=== PATIENT | male | born 1980 | race Asian ===

== ENCOUNTER 2016-09-22 07:39 | Inpatient (IN) | payer MEDICAID, OTHER ==
[~2016-09-22] VITALS: Ht 162.6 cm; Wt 99.8 kg
[~2016-09-22 07:39] MED LIST: CARV12.52 PO; CLON0.1T42 PO; FURO-570 PO; HYDR-3229 PO; ISOS60TE PO; POTA20TA16 PO; SIMV20TA6 PO; SPIR25TA PO
--- NOTE | 2016-09-22 07:48 | NUR ---
Patient taken to bed 04 via wheelchair per RN.
--- NOTE | 2016-09-22 07:49 | NUR ---
Dr. Carbajal evaluating patient at bedside.
--- NOTE | 2016-09-22 07:50 | NUR ---
PATIENT PRESENTS TO ED WITH C/O SOB X 2 WKS WORSE LAST NIGHT---COUGH, WHEEZING HX---CAD, HTN RX---CARDILOL, LASIX, SPAROLACTONE; DENIES N/V/D; SKIN IS PINK/WARM/DRY; AAOX4 WITH EVEN AND STEADY GAIT; LUNGS EXP WHZ BL; HR EVEN AND REGULAR; PT DENIES ANY FEVER, CP,OR COUGH AT THIS TIME; PATIENT STATES PAIN OF 0/10 AT THIS TIME; VSS; PATIENT POSITIONED FOR COMFORT; HOB ELEVATED; BEDRAILS UP X2; BED DOWN. ER MD MADE AWARE OF PT STATUS.
[2016-09-22] MEDS ORDERED: IPRATROPIUM 0.02% 0.5 MG/2.5 ML NEBU INH ONE (07:55)
[2016-09-22] MEDS ORDERED: ALBUTEROL 0.083% 2.5 MG/3 ML NEBU INH ONE (07:55)
[2016-09-22] MEDS ORDERED: MAG SULF 2000 MG/WATER PREMIX 50 ML IV ONE (07:55)
[2016-09-22] MEDS ORDERED: FUROSEMIDE 40 MG/4 ML VIAL IVP ONE (07:55)
--- NOTE | 2016-09-22 07:55 | NUR ---
RT at bedside to give patient breathing treatment.
--- NOTE | 2016-09-22 08:03 | NUR ---
XRAY at bedside.
[2016-09-22 08:09] LABS: BASOPHILS # (AUTO) 0.3 K/uL (0.00-0.22); BASOPHILS % (AUTO) 1.9 % (0.0-2.0); EOSINOPHILS % (AUTO) 6.8 % (0.0-4.0); HEMATOCRIT 41.4 % (36-52); HEMOGLOBIN 13.2 g/dL (12.0-18.0); LYMPHOCYTES # (AUTO) 2.3 K/uL (2.0-11.5); LYMPHOCYTES % (AUTO) 15.9 % (20.5-51.1); MEAN CORPUSCULAR HEMOGLOBIN 28 pg (27-31); MEAN CORPUSCULAR HGB CONC 32 g/dL (33-37); MEAN CORPUSCULAR VOLUME 87 fL (80-94); MONOCYTES # (AUTO) 0.8 K/uL (0.8-1.0); MONOCYTES % (AUTO) 5.6 % (1.7-9.3); NEUTROPHILS % (AUTO) 69.8 % (42.2-75.2); PLATELET COUNT (AUTO) 180 K/uL (140-450); RED BLOOD CELL COUNT(AUTO) 4.78 MIL/uL (4.20-6.10); RED CELL DISTRIBUTION WIDTH 14.3 % (11.6-13.7); WHITE BLOOD COUNT (AUTO) 14.4 K/uL (4.8-10.8)
[2016-09-22 08:13] LABS: BLOOD GAS BASE EXCESS -3.2 mmol/L (-2.0-2.0); BLOOD GAS HCO3 21.7 mmol/L; BLOOD GAS PCO2 38.3 mmHg (20-50); BLOOD GAS PH 7.371 (7.35-7.45); BLOOD GAS PO2 144.9 mmHg
[2016-09-22] MEDS ORDERED: NITROGLYCERIN 2% 1 GM PKT TP ONE ×2 (08:13→08:15)
[2016-09-22 08:14] LABS: BLOOD GAS O2 SAT% 98.5 % (92.0-98.5)
[2016-09-22 08:42] LABS: PARTIAL THROMBOPLASTIN TIME 28.9 secs (22-35.6); PROTHROMBIN TIME 9.7 secs (10.8-13.4)
[2016-09-22 08:47] LABS: ANION GAP 15.8 (8-16); CALCIUM 9.4 mg/dL (8.5-10.1); CARBON DIOXIDE 25.5 mmol/L (21-32); POTASSIUM 3.3 mmol/L (3.5-5.1)
[2016-09-22 08:48] LABS: CREATININE 4.8 mg/dL (0.6-1.3)
[2016-09-22 08:54] LABS: TOTAL BILIRUBIN 0.6 mg/dL (0.0-1.0)
[2016-09-22 08:55] LABS: ALBUMIN 3.1 g/dL (3.4-5.0); TOTAL PROTEIN, SERUM 8.2 g/dL (6.4-8.2)
[2016-09-22 08:56] LABS: AMYLASE 100 U/L (25-115); LIPASE 223 U/L (73-393)
[2016-09-22] MEDS ORDERED: HYDROcodone/APAP 5/325 MG 1 TAB TAB PO PRN (09:00)
[2016-09-22] MEDS ORDERED: ACETAMINOPHEN 325 MG TAB PO PRN (09:00)
[2016-09-22] MEDS ORDERED: LORazepam 2 MG/ML VIAL IVP PRN (09:00)
[2016-09-22] MEDS ORDERED: MORPHINE SULFATE 2 MG/ML SYR IVP PRN (09:00)
[2016-09-22] MEDS ORDERED: ONDANSETRON 4 MG/2 ML VIAL IVP PRN (09:00)
[2016-09-22] MEDS ORDERED: AZITHROMYCIN 500 MG in DEXTROSE 5% 250 ML IV SCH (09:00)
--- NOTE | 2016-09-22 09:15 | NUR ---
Dr. Martinez at bedside
--- NOTE | 2016-09-22 09:47 | NUR ---
Patient will be admitted to care of DR SANTOS. Admited to TELE. Will go to room 119A. Belongings list completed. Report to KENYON BRYANT.
[2016-09-22 09:58] LABS: BILIRUBIN,URINE NEGATIVE (NEGATIVE); BLOOD, URINE 1+ (NEGATIVE); COLOR,URINE YELLOW (YELLOW); LEUKOCYTE ESTERASE ,URINE NEGATIVE (NEGATIVE); NITRITE, URINE NEGATIVE (NEGATIVE); PROTEIN,URINE 3+ (NEGATIVE); UGLUCOSE TRACE (NEGATIVE); UROBILINOGEN,URINE 0.2 EU/dL (0.2 - 1)
[2016-09-22] MEDS ORDERED: POTASSIUM CHLORIDE 10 MEQ TABER PO SCH (10:00)
--- NOTE | 2016-09-22 10:04 | NUR ---
Admitted from ER , with chief complaint of sob , 36 y/o ,Male, Cooperative, oriented to call light, bed, phone,television, bathroom, smoking policy, visiting hours, procedures, ID bracelet on. Belongings list checked. A/OX4, NO S/S OF ACUTE DISTRESS, IV SITE PATENT AND INTACT, PT DENIES PAIN, ON O2 2L NC, CALL LIGHT WITHIN REACH, SAFETY MEASURE ENSURED, WILL CONTINUE TO MONITOR
[2016-09-22 10:06] LABS: RBC,URINE 0-5 (RARE) /HPF (0-5); WBC,URINE 0-5 (RARE) /HPF (0-5)
[2016-09-22 10:07] LABS: BACTERIA,URINE None Seen /HPF (None Seen); MUCUS,URINE None Seen /LPF (None Seen); SQUAMOUS EPITHELIAL CELL,UR 0-3 (FEW) /LPF (0-3 (FEW))
[2016-09-22] MEDS ORDERED: hydrALAZINE 20 MG/ML VIAL IVP PRN (10:15)
[2016-09-22 10:30] LABS: APPEARANCE,URINE SLIGHTLY HAZY (CLEAR)
--- NOTE | 2016-09-22 12:34 | NUR ---
PT RESTING IN BED. NO S/S OF ACUTE DISTRESS NOTED, ON O2 2L NC, DENIES PAIN AT THIS TIME, CALL LIGHT WITHIN REACH, SAFETY MEASURE ENSURED, WILL CONTINUE TO MONITOR.
[2016-09-22] MEDS: hydrALAZINE 25 MG TAB PO SCH ×2 (12:38→21:26)
[2016-09-22] MEDS: ISOSORBIDE DINITRATE 20 MG TAB PO SCH ×2 (12:38→16:57)
[2016-09-22] MEDS: CARVEDILOL 12.5 MG TAB PO SCH ×2 (12:39→21:25)
[2016-09-22] MEDS: ALBUTEROL 0.083% 2.5 MG/3 ML NEBU INH SCH ×2 (12:56→19:35)
[2016-09-22 13:07] VITALS: BP 168/121
--- NOTE | 2016-09-22 15:32 | NUR ---
PT SLEEPING IN BED, NO S/S OF ACUTE DISTRESS NOTED, ON O2 2L NC , CALL LIGHT WITHIN REACH, SAFETY MEASURE ENSURED, WILL CONTINUE TO MONITOR.
[2016-09-22 16:00] VITALS: BP 110/66
--- NOTE | 2016-09-22 17:46 | NUR ---
BLADDER SCAN DONE, 20ML FOUND IN BLADDER, DR AMAYA NOTIFIED.
--- NOTE | 2016-09-22 19:23 | NUR ---
ENDORSED PLAN OF CARE TO NIGHT RN. PATIENT IS STABLE.
--- NOTE | 2016-09-22 19:23 | NUR ---
RECEIVED REPORT FROM DAY SHIFT NURSE. PT IS AAOX4, ON TELE MONITOR, DENIES PAIN AT THIS TIME. ON NASAL CANNULA, HAS S/S OF RESPIRATORY DISTRESS/DISCOMFORT NOTED. IV SITE IS PATENT AND INTACT, SALINE LOCK. PLAN OF CARE DISCUSSED, VERBALIZED UNDERSTANDING. SAFETY MEASURES CHECKED, CALL LIGHT WITHIN REACH. WILL CONTINUE TO MONITOR.
[2016-09-22 20:00] VITALS: BP 131/70
[2016-09-22] MEDS: cloNIDine 0.1 MG TAB PO SCH (21:00)
[2016-09-22] MEDS: SIMVASTATIN 20 MG TAB PO SCH (21:27)
--- NOTE | 2016-09-22 21:30 | NUR ---
DUE PO MEDS GIVEN. PROVIDED DRUG INFO EXPLANATION, S/E AND BENEFITS, VERBALIZED UNDERSTANDING. PT TOLERATED WELL.
[2016-09-23] VITALS: BP 122/62
--- NOTE | 2016-09-23 | NUR ---
V/S CHECKED AND STABLE, DENIES PAIN, HAS NO S/S OF RESPIRATORY DISTRESS/DISCOMFORT NOTED.
[2016-09-23] MEDS: ALBUTEROL 0.083% 2.5 MG/3 ML NEBU INH SCH ×4 (00:19→19:55)
--- NOTE | 2016-09-23 02:44 | NUR ---
EYES CLOSED BREATHING EVEN AND UNLABORED, RESTING QUIETLY. HAS NO S/S OF RESPIRATORY DISTRESS/DISCOMFORT NOTED. CALL LIGHT WITHIN REACH.
[2016-09-23 04:00] VITALS: BP 122/70
--- NOTE | 2016-09-23 04:00 | NUR ---
V/S CHECKED AND STABLE. DENIES PAIN. ON NASAL CANNULA, HAS NO S/S OF RESPIRATORY DISTRESS/DISCOMFORT NOTED.
[2016-09-23] MEDS: CARVEDILOL 12.5 MG TAB PO SCH ×3 (05:02→21:20)
[2016-09-23] MEDS: hydrALAZINE 25 MG TAB PO SCH ×3 (05:02→21:19)
--- NOTE | 2016-09-23 05:10 | NUR ---
DUE PO MEDS GIVEN. PT TOLERATED MEDS WELL
--- NOTE | 2016-09-23 07:10 | NUR ---
ENDORSED TO DAY SHIFT NURSE. PT IN STABLE CONDITION.
--- NOTE | 2016-09-23 07:51 | NUR ---
RECEIVED PT IN BED. AWAKE, ALERT ORIENTED X4. NO SOB NOTED. PT WITH RT, RECEIVING BREATHING TREATMENT. DENIES ANY PAIN OR DISCOMFORT AT THIS TIME. PT AMBULATORY WITH STAND BY ASSIST. POSITIVE BOWEL SOUNDS NOTED ON FOUR QUADRANTS. DENIES ANY PROBLEM WITH BOWEL AND BLADDER ELIMINATION. SAFETY PRECAUTION IN PLACE. CALL LIGHT WITHIN REACH.
[2016-09-23 08:00] VITALS: BP 104/63
--- NOTE | 2016-09-23 08:43 | NUR ---
PLATELET RESULT OF PT IS 85. CALLED DR. SANTOS AND MADE AWARE WITH ORDERS TO HOLD LOVENOX 40 MG SQ.
[2016-09-23] MEDS: POTASSIUM CHLORIDE 10 MEQ TABER PO SCH (08:59)
[2016-09-23] MEDS: SPIRONOLACTONE 25 MG TAB PO SCH (09:00)
[2016-09-23] MEDS ORDERED: ISOSORBIDE MONONITRATE 30 MG TABER PO SCH (09:00)
[2016-09-23] MEDS: FUROSEMIDE 40 MG/4 ML VIAL IVP SCH (09:00)
[2016-09-23] MEDS: ISOSORBIDE DINITRATE 20 MG TAB PO SCH ×3 (09:00→16:41)
[2016-09-23] MEDS: cloNIDine 0.1 MG TAB PO SCH ×2 (09:00→21:00)
[2016-09-23] MEDS ORDERED: POTASSIUM CHLORIDE 10 MEQ TABER PO SCH ×2 (09:00)
[2016-09-23 09:24] LABS: BASOPHILS # (AUTO) 0.1 K/uL (0.00-0.22); BASOPHILS % (AUTO) 0.6 % (0.0-2.0); EOSINOPHILS # (AUTO) 0.6 K/uL (0-0.4); EOSINOPHILS % (AUTO) 4.5 % (0.0-4.0); HEMATOCRIT 32.8 % (36-52); HEMOGLOBIN 10.9 g/dL (12.0-18.0); LYMPHOCYTES # (AUTO) 1.1 K/uL (2.0-11.5); LYMPHOCYTES % (AUTO) 8.5 % (20.5-51.1); MEAN CORPUSCULAR HEMOGLOBIN 29 pg (27-31); MEAN CORPUSCULAR HGB CONC 33 g/dL (33-37); MEAN CORPUSCULAR VOLUME 87 fL (80-94); MONOCYTES # (AUTO) 0.6 K/uL (0.8-1.0); MONOCYTES % (AUTO) 4.9 % (1.7-9.3); NEUTROPHILS # (AUTO) 10.6 K/uL (1.8-7.7); NEUTROPHILS % (AUTO) 81.5 % (42.2-75.2); PLATELET COUNT (AUTO) 168 K/uL (140-450); RED BLOOD CELL COUNT(AUTO) 3.78 MIL/uL (4.20-6.10); RED CELL DISTRIBUTION WIDTH 14.3 % (11.6-13.7)
[2016-09-23 09:35] LABS: ANION GAP 15.9 (8-16); CALCIUM 8.6 mg/dL (8.5-10.1); CARBON DIOXIDE 23.3 mmol/L (21-32); POTASSIUM 3.2 mmol/L (3.5-5.1)
[2016-09-23 09:39] LABS: MAGNESIUM 2.3 mg/dL (1.8-2.4)
[2016-09-23 09:40] LABS: CREATININE 5.1 mg/dL (0.6-1.3)
[2016-09-23 09:49] LABS: CREATINE KINASE MB 2.5 ng/mL (0-3.6)
[2016-09-23] MEDS: AZITHROMYCIN 500 MG in DEXTROSE 5% 250 ML IV SCH (09:56)
[2016-09-23 12:00] VITALS: BP 128/76
--- NOTE | 2016-09-23 12:07 | NUR ---
PATIENT HAS BEEN SCREENED AND CATEGORIZED MODERATE NUTRITION RISK. PATIENT WILL BE SEEN WITHIN 3-5 DAYS OF ADMISSION. 09/25/16 - 09/27/16 JOSH STUBBS MBA, RD
[2016-09-23 16:00] VITALS: BP 113/60
--- NOTE | 2016-09-23 16:00 | NUR ---
PT BLADDER SCAN DONE WITH 27 ML RESULT. PT DENIES ANY PAIN OR DISCOMFORT, VOIDING OK, CLEAR, YELLOW URINE.
--- NOTE | 2016-09-23 19:27 | NUR ---
PT. ASLEEP IN BED. AROUSABLE TO VOICE. NO SOB NOTED, DENIES ANY PAIN OR DISCOMFORT AT THIS TIME. PT KEPT CLEAN DRY AND COMFORTABLE, NEEDS ATTENDED. ENDORSED TO NEONATAL SOCIAL WORKER FOR CONTINUITY OF CARE. PT ON STABLE CONDITION.
--- NOTE | 2016-09-23 19:30 | NUR ---
RECEIVED REPORT FROM DAY RN AT BEDSIDE, PATIENT IS AAOX4 RESTING IN BED ON O2 2L NC, NO SOB OR DISTRESS NOTED, IV TO RFA AND LW PATENT AND INTACT, SKIN INTACT, PT DENIES PAIN AT THIS TIME, DISCUSSED PLAN OF CARE WITH PATIENT, PATIENT VERBALIZED UNDERSTANDING, SAFETY MEASURES CHECKED, CALL LIGHT WITHIN REACH. WILL CONTINUE TO MONITOR.
[2016-09-23 20:00] VITALS: BP 129/63
[2016-09-23] MEDS: SIMVASTATIN 20 MG TAB PO SCH (21:20)
--- NOTE | 2016-09-23 21:28 | NUR ---
PM MEDS ADMINISTERED, PATIENT TOLERATED WELL, CALL LIGHT WITHIN REACH, WILL CONTINUE TO MONITOR.
[2016-09-24] VITALS: BP 135/74
--- NOTE | 2016-09-24 00:15 | NUR ---
VITAL SIGNS STABLE, NO SOB OR SIGN OF DISTRESS, CALL LIGHT WITHIN REACH. WILL CONTINUE TO MONITOR.
[2016-09-24] MEDS: ALBUTEROL 0.083% 2.5 MG/3 ML NEBU INH SCH ×4 (00:32→19:46)
--- NOTE | 2016-09-24 02:30 | NUR ---
PATIENT SLEEPING, NO SIGN OF DISTRESS, CALL LIGHT WITHIN REACH. WILL CONTINUE TO MONITOR.
[2016-09-24 04:00] VITALS: BP 132/82
[2016-09-24] MEDS: hydrALAZINE 25 MG TAB PO SCH ×3 (04:12→20:32)
[2016-09-24] MEDS: CARVEDILOL 12.5 MG TAB PO SCH ×3 (04:13→20:29)
--- NOTE | 2016-09-24 04:25 | NUR ---
VITAL SIGNS STABLE, NO SOB OR SIGN OF DISTRESS , CALL LIGHT WITHIN REACH. WILL CONTINUE TO MONITOR.
[2016-09-24 06:16] LABS: BASOPHILS % (AUTO) 0.4 % (0.0-2.0); EOSINOPHILS # (AUTO) 0.6 K/uL (0-0.4); EOSINOPHILS % (AUTO) 5.7 % (0.0-4.0); HEMATOCRIT 32.5 % (36-52); HEMOGLOBIN 10.6 g/dL (12.0-18.0); LYMPHOCYTES # (AUTO) 1.4 K/uL (2.0-11.5); MEAN CORPUSCULAR HEMOGLOBIN 29 pg (27-31); MEAN CORPUSCULAR HGB CONC 33 g/dL (33-37); MEAN CORPUSCULAR VOLUME 88 fL (80-94); MONOCYTES # (AUTO) 0.9 K/uL (0.8-1.0); MONOCYTES % (AUTO) 7.7 % (1.7-9.3); NEUTROPHILS # (AUTO) 8.5 K/uL (1.8-7.7); NEUTROPHILS % (AUTO) 74.2 % (42.2-75.2); PLATELET COUNT (AUTO) 165 K/uL (140-450); RED CELL DISTRIBUTION WIDTH 14.3 % (11.6-13.7); WHITE BLOOD COUNT (AUTO) 11.4 K/uL (4.8-10.8)
[2016-09-24 06:44] LABS: ALBUMIN 2.5 g/dL (3.4-5.0); ANION GAP 16.7 (8-16); CALCIUM 8.6 mg/dL (8.5-10.1); POTASSIUM 3.7 mmol/L (3.5-5.1); TOTAL BILIRUBIN 0.4 mg/dL (0.0-1.0); TOTAL PROTEIN, SERUM 6.9 g/dL (6.4-8.2)
--- NOTE | 2016-09-24 06:48 | NUR ---
PLACED PT BACK ON 2LNC
[2016-09-24 06:52] LABS: CREATININE 5.3 mg/dL (0.6-1.3)
--- NOTE | 2016-09-24 07:30 | NUR ---
ENDORSED PATIENT TO DAY RN AT BEDSIDE, PATIENT IN STABLE CONDITION
--- NOTE | 2016-09-24 07:31 | NUR ---
PT AWAKE AND ALERT, NO SIGNS OF ACUTE DISTRESS. BREATHING EVEN WITH NASAL FLARING, PT ON OXYGEN 2LPM VIA NC. BOWEL SOUNDS ACTIVE IN ALL 4 QUADRANTS, ABDOMEN SOFT AND ROUND, SKIN INTACT. AMBULATORY WITH ASSIST. BOWEL AND BLADDER CONTINENT, USES URINAL. BED IN LOW POSITION WITH BILATERAL HALF SIDE RAILS UP, CALL LIGHT WITHIN REACH. REORIENTED TO UNIT AND HOSPITAL, PT VERBALIZED UNDERSTANDING.
[2016-09-24 08:00] VITALS: BP 124/56
[2016-09-24] MEDS ORDERED: AZITHROMYCIN 500 MG INJ VIAL IV ONE (09:17)
[2016-09-24] MEDS: POTASSIUM CHLORIDE 10 MEQ TABER PO SCH (09:22)
[2016-09-24] MEDS: AZITHROMYCIN 500 MG in DEXTROSE 5% 250 ML IV SCH (09:22)
[2016-09-24] MEDS: SPIRONOLACTONE 25 MG TAB PO SCH (09:22)
[2016-09-24] MEDS: ISOSORBIDE DINITRATE 20 MG TAB PO SCH ×3 (09:23→16:41)
[2016-09-24] MEDS: FUROSEMIDE 40 MG/4 ML VIAL IVP SCH (09:23)
[2016-09-24] MEDS: cloNIDine 0.1 MG TAB PO SCH ×2 (09:26→20:32)
[2016-09-24] MEDS ORDERED: CEPH250C16 PO (10:20)
--- NOTE | 2016-09-24 11:48 | NUR ---
RECEIVED NEW ORDERS FROM DR HATFIELD, NOTED, WILL CARRY OUT.
[2016-09-24 12:00] VITALS: BP 109/75
--- NOTE | 2016-09-24 12:37 | NUR ---
SPOKE WITH DR TAPIA, CLEARED FOR DISCHARGE FROM A CARDIAC STANDPOINT. PER DR TAPIA WOULD LIKE ME TO VERBALIZE TO DR HATFIELD TO NOT DISCHARGE AND CONSIDER POSSIBLE DIALYSIS DUE TO TRENDING INCREASES IN CREATININE AND BUN. TODAY CREATININE IS 5.3 AND BUN IS 65. PAGED DR HATFIELD AND WILL RELAY INFORMATION TO HIM.
--- NOTE | 2016-09-24 12:55 | NUR ---
PATIENT SEEN BY DR HATFIELD, WILL NOT DISCHARGE TODAY BUT INSTEAD BEGIN HEMODIALYSIS AND PLACE PERMACATHETER TOMORROW.
--- NOTE | 2016-09-24 13:15 | NUR ---
RECEIVED NEW ORDERS FROM DR HIGGINS AND DR HATFIELD FOR NPO AFTER MIDNIGHT AND CONSENT OF PLACEMENT OF TUNNELED HEMODIALYSIS PERMACATHETER, NOTED AND WILL CARRY OUT.
[2016-09-24] MEDS ORDERED: FUROSEMIDE 40 MG/4 ML VIAL IVP SCH (14:00)
--- NOTE | 2016-09-24 14:28 | NUR ---
FAXED INITIAL REVIEW TO [facility] [phone] PHONE KARISSA [phone]
--- NOTE | 2016-09-24 15:50 | NUR ---
CLINICAL INFORMATION FAXED TO ERNESTINA AT [facility]. [phone] PHONE [phone]
[2016-09-24 16:00] VITALS: BP 106/53
--- NOTE | 2016-09-24 17:05 | NUR ---
PAGED DR WILLIE SIMMONS FOR CARDIAC CLEARANCE FOR PLACEMENT OF HEMODIALYSIS PERMACATHETER WITH DR HIGGINS TOMORROW.
--- NOTE | 2016-09-24 17:21 | NUR ---
PAGED DR SANTOS, PT C/O INTERMITTENT WORSENING SOB, OBSERVED BPM AT 26 WITH ABDOMINAL RETRACTIONS, O2 SATURATION AT 98%.
--- NOTE | 2016-09-24 17:28 | NUR ---
SPOKE WITH PONCE GARY TO GIVE IV 0.5MG ATIVAN Q 6 H NEEDED, NOTED WILL CARRY OUT.
[2016-09-24] MEDS ORDERED: LORazepam 2 MG/ML VIAL IVP PRN (17:35)
--- NOTE | 2016-09-24 18:34 | NUR ---
STILL HAVE NOT RECEIVED CALL BACK FROM DR TAPIA, WILL ENDORSE TO SCRAP IRON CUTTER NURSE.
--- NOTE | 2016-09-24 19:25 | NUR ---
RECEIVED FROM AM RN IN BED SITTING UP. ABLE TO VERBALIZE NEEDS WELL IN VIETNAMESE. NO SOB AT THIS TIME. 02 SAT AT 99% WITH 02 AT 2LPM/NC. CARE PLANS DISCUSSED WITH HIM FOR THE NIGHT. ENCOURAGED TO USE CALL LIGHT FOR ANY HELP HE MAY NEED AND TO CALL ME IN MY DIRECT PHONE. RAPID RESPONSE RE- EXPLAINED TO HIM. ON TELEMETRY MONITORING. BREATHING TREATMENTS ON GOING. DENIES PAIN AT THIS TIME.
--- NOTE | 2016-09-24 19:51 | NUR ---
FOUND PT ON 3 L NC. LOWERED IT TO 2 L NC PT SAT IS STILL 100%. WILL TITRATE TOLERATED. NO SOB OR DISTRESS NOTED. HHN OF ALB IS GIVEN. WILL CONTINUE TO MONITOR.
[2016-09-24 20:12] VITALS: BP 99/54
[2016-09-24] MEDS: SIMVASTATIN 20 MG TAB PO SCH (20:29)
--- NOTE | 2016-09-24 21:30 | NUR ---
PT. SLEEPING AT THIS TIME. CALL LIGHT WITH IN REACH.
--- NOTE | 2016-09-25 | NUR ---
PT. SLEEPING AT THIS TIME. NO RESTLESSNESS NOTED. NO SOB. 02 SAT AT 99 % WITH 02 AT 2LPM/NC.
[2016-09-25] MEDS: ALBUTEROL 0.083% 2.5 MG/3 ML NEBU INH SCH ×4 (00:19→19:44)
[2016-09-25 00:34] VITALS: BP 130/70
--- NOTE | 2016-09-25 02:22 | NUR ---
SLEEPING WELL. NO RESTLESSNESS. TELEMETRY MONITORING. USES CALL LIGHT FOR HELP.
--- NOTE | 2016-09-25 04:10 | NUR ---
SLEEPING WELL. NO COMPLAINTS DONE. TELEMETRY MONITORING. NO SOB. CALL LIGHT WITH IN REACH.
[2016-09-25 04:25] VITALS: BP 132/85
[2016-09-25] MEDS: hydrALAZINE 25 MG TAB PO SCH ×3 (04:54→20:45)
[2016-09-25] MEDS: CARVEDILOL 12.5 MG TAB PO SCH ×3 (04:54→20:48)
[2016-09-25 06:50] LABS: CALCIUM 8.9 mg/dL (8.5-10.1); CARBON DIOXIDE 22.7 mmol/L (21-32); POTASSIUM 3.7 mmol/L (3.5-5.1)
[2016-09-25 06:55] LABS: CREATININE 5.1 mg/dL (0.6-1.3)
--- NOTE | 2016-09-25 07:40 | NUR ---
ENDORSED TO TH E NEXT RN FOR CONTINUITY OF CARE. SLEEPING. WOKE UP EASILY WHEN TOUCHED. NO COMPLAINTS DONE. TELEMETRY MONITORING. NPO SINCE MIDNIGHT.
--- NOTE | 2016-09-25 07:41 | NUR ---
RECEIVED REPORT OF PT AT BEDSIDE FROM MANUFACTURED BUILDINGS REPAIRER NURSE. INTRODUCED MYSELF AND UPDATED THE BOARD. PATIENT IS ALERT AWAKE AND ORIENTED. PT HAS SHALLOW BREATHING, RATE OF 20, LUNG SOUNDS COARSE ON EXPIRATION, SLIGHTLY DIMINISHED. PT HAS BEEN NPO SINCE MIDNIGHT FOR D/A CATH PLACEMENT PROCEDURE TODAY, CONSENT SIGNED. PT IS ON 2L NC. PT HAS L HAND 20G SALINE-LOCKED, R F/A 20G SALINE-LOCKED. CALL LIGHT WITHIN REACH. WILL CONTINUE TO MONITOR.
[2016-09-25 08:00] VITALS: BP 131/66
[2016-09-25] MEDS: AZITHROMYCIN 500 MG in DEXTROSE 5% 250 ML IV SCH (08:49)
[2016-09-25] MEDS: SPIRONOLACTONE 25 MG TAB PO SCH (09:00)
[2016-09-25] MEDS: ISOSORBIDE DINITRATE 20 MG TAB PO SCH ×3 (09:00→16:16)
[2016-09-25] MEDS: cloNIDine 0.1 MG TAB PO SCH ×2 (09:00→20:48)
[2016-09-25] MEDS: POTASSIUM CHLORIDE 10 MEQ TABER PO SCH (09:00)
--- NOTE | 2016-09-25 09:00 | NUR ---
ADMINISTERED IV MEDS AND HELD ALL PO MEDS. PT RESTING IN BED. CALL LIGHT WITHIN REACH. WILL CONTINUE TO MONITOR.
--- NOTE | 2016-09-25 09:17 | NUR ---
AZITHROMYCIN NOT GIVEN. WAS ORDERED TO GIVE IN OR BUT PROCEDURE CANCELLED.
[2016-09-25] MEDS: FUROSEMIDE 40 MG/4 ML VIAL IVP SCH (09:37)
--- NOTE | 2016-09-25 10:50 | NUR ---
OR CALLED STATING THEY WILL BRING PT TO SURGERY SOON. PT HAS NO JEWELRY, GLASSES, OR DENTURES ON.
[2016-09-25 12:00] VITALS: BP 135/85
--- NOTE | 2016-09-25 13:43 | NUR ---
FAXED CONCURRENT REVIEW TO [facility] [phone] PHONE KARISSA [phone]
--- NOTE | 2016-09-25 14:22 | NUR ---
5299 SPOKE WITH ERNESTINA FROM [facility] [phone] AND SHE REQUESTED ADDITIONAL INFORMATION INCLUDING HEPATITIS PANEL, DIALYSIS RUN SHEET AND CXR TO R/O TB AND PERMACATH PROCEDURE NOTE. INFORMED HER THAT PT HAS NOT HAD DIALYSIS HE DOES NOT YET HAVE AN ACCESS AND WILL SEND INFORMATION WHEN AVAILABLE. PER ERNESTINA PT WILL BE SCHEDULED FOR [facility] AT [address], [place] [id number] PHONE [phone]. STATED SHE SPOKE WITH SANDRA AT [facility] WHO REQUESTED THAT ORDER FOR OP DIALYSIS BE FAXED TO [phone]. INFORMED HER THAT WHEN ORDER IS AVAILABLE WILL FAX.
--- NOTE | 2016-09-25 14:29 | NUR ---
DR HATFIELD STATED PT WON'T HAVE PROCEDURE TODAY AND COULD EAT RIGHT NOW.
--- NOTE | 2016-09-25 14:30 | NUR ---
CALLED [employer] FOR A LATE TRAY FOR PT.
--- NOTE | 2016-09-25 14:45 | NUR ---
PROVIDED PT WITH A PITCHER OF ICE WATER.
[2016-09-25 15:09] LABS: HEPATITIS A ANTIBODY IGM Negative (Negative); HEPATITIS A ANTIBODY TOTAL Positive (Negative); HEPATITIS B CORE, IGM Negative (Negative); HEPATITIS B SURFACE AB Reactive (.); HEPATITIS B SURFACE ANTIGEN Negative (Negative); HEPATITIS C VIRUS ANTIBODY <0.1 s/co ratio (0.0-0.9)
--- NOTE | 2016-09-25 15:13 | NUR ---
PT IS EATING AND DRINKING. TOLERATING WELL. CALL LIGHT WITHIN REACH. WILL CONTINUE TO MONITOR.
[2016-09-25 15:43] LABS: HEPATITIS B CORE AB TOTAL Positive (Negative)
[2016-09-25 16:00] VITALS: BP 143/99
--- NOTE | 2016-09-25 16:17 | NUR ---
ADMINISTERED AFTERNOON MED. PT HAS NO OTHER COMPLAINTS AT THIS TIME. CALL LIGHT WITHIN REACH. WILL CONTINUE TO MONITOR.
--- NOTE | 2016-09-25 19:30 | NUR ---
ENDORSED PT TO THE NIGHTSHIFT NURSE AT BEDSIDE FOR CONTINUITY OF CARE. PT IN STABLE CONDITION.
--- NOTE | 2016-09-25 19:30 | NUR ---
RECEIVED FROM AM RN IN BED SLEEPING. WAKES UP EASILY WHEN TOUCHED. NO SOB. DENIES PAIN AT THIS TIME. CALL LIGHT WITH IN REACH. STILL CONTINUOUS WITH BREATHING TREATMENTS. VERBALIZES NEEDS WELL. A/O X 4. ROM X 4. TELEMETRY MONITORING. FOR HD CATHETER PLACEMENT TOMORROW BY MD Kevin HIGGINS. REMINDED NPO STARTING MIDNIGHT . "OK"
--- NOTE | 2016-09-25 19:45 | NUR ---
PT WANTS TO SLEEP, AND NOT TO BE WAKE UP AT 01 AM, IF HE NEEDED WILL CALL
[2016-09-25 19:56] VITALS: BP 146/73
[2016-09-25] MEDS: SIMVASTATIN 20 MG TAB PO SCH (20:45)
--- NOTE | 2016-09-25 22:44 | NUR ---
PT. SLEEPING AT THIS TIME. PT. ON TELEMETRY MONITORING.
--- NOTE | 2016-09-25 23:43 | NUR ---
. NPO TO START AT 0000. PT. AWARE. SLEEPING AT THIS TIME. NO RESTLESSNESS. NO SOB. CALL LIGHT WITH IN REACH. VERBALIZES WELL.
[2016-09-26 00:02] VITALS: BP 135/78
[2016-09-26] MEDS: ALBUTEROL 0.083% 2.5 MG/3 ML NEBU INH SCH ×4 (01:00→19:47)
[2016-09-26 04:25] VITALS: BP 140/85
--- NOTE | 2016-09-26 04:27 | NUR ---
BEEN SLEEPING WELL. WITH BREATHING TREATMENTS. ON 02 AT 2LPM/NC. A/O X 4. CLEAR SPEECH. TELEMETRY MONITORING.
[2016-09-26] MEDS: hydrALAZINE 25 MG TAB PO SCH ×3 (05:24→21:42)
[2016-09-26] MEDS: CARVEDILOL 12.5 MG TAB PO SCH ×3 (05:25→21:42)
[2016-09-26 06:32] LABS: BASOPHILS % (AUTO) 0.3 % (0.0-2.0); EOSINOPHILS # (AUTO) 0.6 K/uL (0-0.4); EOSINOPHILS % (AUTO) 5.4 % (0.0-4.0); HEMATOCRIT 31.1 % (36-52); HEMOGLOBIN 10.3 g/dL (12.0-18.0); LYMPHOCYTES # (AUTO) 1.3 K/uL (2.0-11.5); LYMPHOCYTES % (AUTO) 11.8 % (20.5-51.1); MEAN CORPUSCULAR HEMOGLOBIN 29 pg (27-31); MEAN CORPUSCULAR HGB CONC 33 g/dL (33-37); MEAN CORPUSCULAR VOLUME 88 fL (80-94); MONOCYTES # (AUTO) 0.9 K/uL (0.8-1.0); MONOCYTES % (AUTO) 8.4 % (1.7-9.3); NEUTROPHILS # (AUTO) 8.1 K/uL (1.8-7.7); NEUTROPHILS % (AUTO) 74.1 % (42.2-75.2); PLATELET COUNT (AUTO) 182 K/uL (140-450); RED BLOOD CELL COUNT(AUTO) 3.54 MIL/uL (4.20-6.10); RED CELL DISTRIBUTION WIDTH 14.4 % (11.6-13.7); WHITE BLOOD COUNT (AUTO) 10.9 K/uL (4.8-10.8)
[2016-09-26 06:49] LABS: ANION GAP 15.9 (8-16); CALCIUM 8.8 mg/dL (8.5-10.1); POTASSIUM 3.9 mmol/L (3.5-5.1)
[2016-09-26 06:53] LABS: CREATININE 4.7 mg/dL (0.6-1.3)
--- NOTE | 2016-09-26 07:30 | NUR ---
REPORT RECEIVED FROM CHILI PEPPER GRINDER, PT RESTING QUIETLY, RESP EVEN UNLABORED ON ROOM AIR, SPEAKING CLEARLY IN NAD, PLAN OF CARE DISCUSSED, PT NPO SINCE MN, PT DENIES ANY IMMEDIATE NEEDS, CALL TELLEZ WITHIN REACH, SIDE RAILS UP, BED LOCKED IN LOW POSITION, WILL CONTINUE TO MONITOR.
--- NOTE | 2016-09-26 07:35 | NUR ---
ENDORSED TO THE NEXT RN FOR CONTINUITY OF CARE. AWAKE AND ALERT. WATCHING TV. ORIENTED X 4. BEEN NPO SINCE MN.
[2016-09-26 08:00] VITALS: BP 108/67
[2016-09-26] MEDS ORDERED: BUPIVACAINE-MPF 0.25% 30 ML VIAL INJ ONE (09:02)
--- NOTE | 2016-09-26 09:05 | NUR ---
PAGED DR HIGGINS TO CHECK ON DIALYSIS CATH PLACEMENT SCHEDULE, 11AM TODAY PER DR HIGGINS, PT UPDATED WITH PLAN.
[2016-09-26] MEDS ORDERED: ceFAZolin 1,000 MG VIAL ONE ×2 (09:10→11:47)
[2016-09-26] MEDS ORDERED: LIDOCAINE 1% 50 ML ONE (09:10)
[2016-09-26] MEDS: FUROSEMIDE 40 MG/4 ML VIAL IVP SCH (09:25)
[2016-09-26] MEDS: SPIRONOLACTONE 25 MG TAB PO SCH (09:32)
[2016-09-26] MEDS: cloNIDine 0.1 MG TAB PO SCH ×2 (09:33→21:43)
[2016-09-26] MEDS: ISOSORBIDE DINITRATE 20 MG TAB PO SCH ×3 (09:33→17:00)
[2016-09-26] MEDS: POTASSIUM CHLORIDE 10 MEQ TABER PO SCH (09:33)
[2016-09-26] MEDS: AZITHROMYCIN 500 MG in DEXTROSE 5% 250 ML IV SCH (10:09)
--- NOTE | 2016-09-26 10:40 | NUR ---
PREOP CHECKLIST DONE
[2016-09-26] MEDS ORDERED: PROPOFOL 200 MG/20 ML VIAL IV ONE (11:30)
[2016-09-26] MEDS ORDERED: fentaNYL 0.05 MG/ML VIAL ONE (11:45)
--- NOTE | 2016-09-26 11:45 | NUR ---
PT NOW IN OR
[2016-09-26] MEDS ORDERED: MORPHINE SULFATE 4 MG/ML SYR ONE (11:46)
[2016-09-26] MEDS ORDERED: MIDAZOLAM 2 MG/2 ML VIAL ONE (11:46)
[2016-09-26] MEDS ORDERED: MORPHINE SULFATE 2 MG/ML SYR IVP PRN (13:00)
[2016-09-26] MEDS ORDERED: MORPHINE SULFATE 4 MG/ML SYR IVP PRN ×2 (13:00)
[2016-09-26] MEDS ORDERED: METOCLOPRAMIDE 10 MG/2 ML INJ VIAL IVP PRN (13:00)
[2016-09-26] MEDS ORDERED: MIDAZOLAM 2 MG/2 ML VIAL IV ONE (13:00)
[2016-09-26 14:00] VITALS: BP 161/96
--- NOTE | 2016-09-26 14:30 | NUR ---
PT RETURNED FROM PACU, REPORT RECEIVED FROM DELMER, PT AWAKE TALKING WITHOUT PROBLEM, NEW CATH NOTED TO RIGHT CHEST WALL, PER REPORT CXR DONE, PT VITALS STABLE DOCUMENTED, PT DENIES PAIN OR DISCOMFORT, PT PLACED BACK ON PATHOLOGY LABORATORY AIDES TEACHER, CALL TELLEZ WITHIN REACH, SIDE RAILS UP, BED LOCKED IN LOW POSITION, PT MADE AWARE OF DIALYSIS TO BE DONE TODAY, WILL CONTINUE TO MONITOR.
[2016-09-26 16:00] VITALS: BP 158/79
--- NOTE | 2016-09-26 16:19 | NUR ---
1400 CALL RECEIVED FROM ROSALVA [facility] [phone] REQUESTING NAME OF ACCREDITED LEGAL SECRETARY TO INPUT AUTHORIZATION FOR PHYSICIAN AND OP DIALYSIS. INFORMATION PROVIDED.
--- NOTE | 2016-09-26 16:30 | NUR ---
PT RESTING COMFORTABLY IN NAD, DENIES PAIN OR DISCOMFORT, KAYLYNN PO CLEAR LIQ WELL WITHOUT N/V, DIALYSIS NURSE AT BEDSIDE, DIALYSIS STARTED AT THIS TIME.
--- NOTE | 2016-09-26 17:45 | NUR ---
CLARIFIED WITH WORKFORCE INVESTMENT ACT CAREER MANAGER BRITANY REGARDING DR. SANTOS'S DISCHARGE ORDER FOR PT TONIGHT AFTER HEMODIALYSIS IS DONE. PER BRITANY, THERE IS NO CONFIRMATION FROM OUT PATIENT HEMODIALYSIS YET. DR. SANTOS MADE AWARE AND GAVE BRITANY'S NUMBER IN CASE HE HAS QUESTIONS.
--- NOTE | 2016-09-26 18:43 | NUR ---
1500 SPOKE WITH SIMONA SANTANA COORDINATOR FOR [facility] AND SHE INQUIRED IF REQUESTED DOCUMENTATION FOR PT'S DIALYSIS RUN SHEET, PERMACATH PROCEDURE NOTE, HEPATITIS PANEL AVAILABLE. ALSO INQUIRED IF [facility] HAD BEEN PROVIDED INFORMATION THEY REQUIRE TO GENERATE THE AUTHORIZATION FOR THE OUTPATIENT DIALYSIS. INFORMED HER THAT THE PT'S OPERATIVE NOTE NOT YET AVAILABLE PT JUST HAD PROCEDURE TODAY LATE AM AND HAS NOT YET HAD DIALYSIS AND THAT I SPOKE WITH ROSALVA AT [facility] AND PROVIDED THE REQUESTED INFORMATION. SIMONA REQUESTED THAT HEPATITIS PANEL BE FAXED AND WILL BEGIN THE PROCESS OF SETTING UP THE OP DIALYSIS BUT WILL STILL NEED THE DIALYSIS RUN SHEET AND PROCEDURE NOTE TO PROVIDE TO [facility]. OUTPATIENT SEAT CONFIRMATION CANNOT BE GIVEN UNTIL [facility] HAS ALL REQUIRED INFORMATION. HEP PANEL RESULTS FAXED REQUESTED. 174 RECEIVED CALL FROM IRIS CHARGE NURSE ON [facility] STATING THAT DR SANTOS HAS GIVEN INSTRUCTION TO DISCHARGE PT. INFORMED HER THAT THERE HAS BEEN NO CONFIRMATION GIVEN FOR OUTPATIENT DIALYSIS SEAT YET PT HAS NOT COMPLETED THE FIRST DIALYSIS TREATMENT TO PROVIDE THE DIALYSIS UNIT WITH THE RUN SHEET THAT HAS BEEN REQUESTED AND THAT UNTIL THE OUTPATIENT DIALYSIS SEAT IS CONFIRMED IT IS NOT ADVISABLE FOR PT TO DISCHARGE. 183 SPOKE WITH IRIS AGAIN AND CONFIRMED WITH HER THAT PT STARTED DIALYSIS TREATMENT AT APPROX 1630 AND AT THIS TIME PT IS STILL RECEIVING DIALYSIS TREATMENT. INSTRUCTED HER THAT IF DR SANTOS HAS ANY QUESTIONS REGARDING OP HD ARRANGEMENTS TO HAVE HIM CALL [facility].
--- NOTE | 2016-09-26 18:47 | NUR ---
REPORT RECEIVED FROM DIALYSIS NURSE, DIALYSIS COMPLETED NOW, 500ML REMOVED. PT KAYLYNN WELL.
--- NOTE | 2016-09-26 19:25 | NUR ---
RECEIVED PT AWAKE, AAOX4, DENIES ANY PAIN, NO SOB NOTED, VITAL SIGNS STABLE, RT UPPER CHEST TUNNELED PERMA-CATH IN PLACE, DRESSING DRY AND INTACT, NO BLEEDING NOTED, PLAN OF CARE DISCUSSED, CALL LIGHT WITHIN REACH.
--- NOTE | 2016-09-26 19:30 | NUR ---
REPORT GIVEN TO NEMATOLOGIST NURSE, PT IN STABLE CONDITION.
[2016-09-26 20:00] VITALS: BP 131/80
--- NOTE | 2016-09-26 20:05 | NUR ---
DR SANTACRUZ RETURN CALL FOR DR HATFIELD EXPLAINED TO HIM THAT NO CONFIRM OUTPATIEN DIALYSIS SEAT YET, STATED ITS OK FOR PT TO STAY TONIGHT.
[2016-09-26] MEDS: SIMVASTATIN 20 MG TAB PO SCH (21:43)
--- NOTE | 2016-09-26 21:50 | NUR ---
VOIDING FREELY PER URINAL, MONITORED CLOSELY.
[2016-09-27] VITALS: BP 130/89
[2016-09-27] MEDS: ALBUTEROL 0.083% 2.5 MG/3 ML NEBU INH SCH ×2 (00:49→08:16)
[2016-09-27 04:00] VITALS: BP 119/77
--- NOTE | 2016-09-27 04:00 | NUR ---
PT SLEEPING, EASILY AROUSABLE, VITAL SIGNS STABLE, NO DISTRESS NOTED.
[2016-09-27] MEDS: CARVEDILOL 12.5 MG TAB PO SCH (05:10)
[2016-09-27] MEDS: hydrALAZINE 25 MG TAB PO SCH (05:10)
--- NOTE | 2016-09-27 05:20 | NUR ---
PT AWAKE, DUE PO MEDICATIONS GIVEN, MONITORED CLOSELY.
[2016-09-27 06:47] LABS: ANION GAP 14.5 (8-16); CALCIUM 9.2 mg/dL (8.5-10.1); CARBON DIOXIDE 26.3 mmol/L (21-32); POTASSIUM 3.8 mmol/L (3.5-5.1)
--- NOTE | 2016-09-27 07:05 | NUR ---
PT SITTING ON SIDE OF BED, NO SIGNS OF DISTRESS, REPORT GIVEN TO KENYON SHELTON FOR CONTINUITY OF CARE.
[2016-09-27 07:28] LABS: CREATININE 4.1 mg/dL (0.6-1.3)
[2016-09-27 08:00] VITALS: BP 117/81
[2016-09-27] MEDS: SPIRONOLACTONE 25 MG TAB PO SCH (09:00)
[2016-09-27] MEDS: FUROSEMIDE 40 MG/4 ML VIAL IVP SCH (09:45)
[2016-09-27] MEDS: POTASSIUM CHLORIDE 10 MEQ TABER PO SCH (09:45)
[2016-09-27] MEDS: AZITHROMYCIN 500 MG in DEXTROSE 5% 250 ML IV SCH (09:45)
--- NOTE | 2016-09-27 10:34 | NUR ---
FAXED OPERATIVE REPORT FOR PERMACATH AND IST HD RUN TO SIMONA ALMENDAREZ [phone]
--- NOTE | 2016-09-27 11:42 | NUR ---
RECEIVED CALL FROM SIMONA FROM [facility]. THE PATIENT WILL HAVE HD ON MWF AT 7 P.M. AT [facility] [address] [place] PHONE [phone]. HE NEEDS TO START TODAY AND BE THERE AT 6:30P.M. TO SIGN CONSENTS. HE IS TO BRING INSURANCE CARE, 2 FORMS OF ID AND MEDICATION LIST WITH HIM. BURTON PRESCOTTFOREIGN DIPLOMAT NURSE AWARE. I CALLED KARISSA FROM [facility] AND GAVE VERBAL REPORT TO HER.
[2016-09-27 12:00] VITALS: BP 133/85
--- NOTE | 2016-09-27 13:25 | NUR ---
IV LINE REMOVED, DRESSING AND MANUAL PRESSURE APPLIED. PATIENT DISCHARGE HOME.
--- NOTE | 2016-09-27 13:30 | NUR ---
PATIENT LEFT THE UNIT, DISCHARGE HOME IN A STABLE CONDITION, DENIES ANY PAIN. DISCHARGE EDUCATION GIVEN AND PATIENT VERBALIZED UNDERSTANDING.
--- NOTE | 2016-09-27 13:36 | NUR ---
09/27/16 RD INITIAL ASSESSMENT COMPLETED PLEASE REFER TO NUTRITION ASSESSMENT UNDER CARE ACTIVITY FOR ESTIMATED NUTRITIONAL NEEDS. 1. CONTINUE RENAL, CARDIAC DIET 2. RD TO FOLLOW-UP 3-5 DAYS; MODERATE RISK EDUARDA CHAU RD
[2016-09-28 15:13] LABS: HEPATITIS B SURFACE AB Reactive (.); HEPATITIS B SURFACE ANTIGEN Negative (Negative)
[2016-09-28 18:22] LABS: HEPATITIS B CORE AB TOTAL Positive (Negative)
== END 2016-09-27 13:15 | disposition home or self-care (01) | DRG 194 ==
LOC: MED 07:39 → MTU 08:58
PROVIDERS: ADMIT Hospitalist; ATTEND Hospitalist
PROC: B5181ZA Fluoroscopy of Superior Vena Cava using Low Osmolar Contrast, Guidance (ICD-10-PCS; 2016-09-26)
PROC: B543ZZA Ultrasonography of Right Jugular Veins, Guidance (ICD-10-PCS; 2016-09-26)
PROC: 02HV33Z Insertion of Infusion Device into Superior Vena Cava, Percutaneous Approach (ICD-10-PCS; principal; 2016-09-26 11:00)
DX: I13.0 Hypertensive heart and chronic kidney disease with heart failure and stage 1 through stage 4 chronic kidney disease, or unspecified chronic kidney disease (principal); I21.4 Non-ST elevation (NSTEMI) myocardial infarction; J18.9 Pneumonia, unspecified organism; N17.9 Acute kidney failure, unspecified; N18.6 End stage renal disease; I42.9 Cardiomyopathy, unspecified; I50.43 Acute on chronic combined systolic (congestive) and diastolic (congestive) heart failure; J98.11 Atelectasis; E11.22 Type 2 diabetes mellitus with diabetic chronic kidney disease; D63.8 Anemia in other chronic diseases classified elsewhere; E87.6 Hypokalemia; F17.210 Nicotine dependence, cigarettes, uncomplicated; E66.01 Morbid (severe) obesity due to excess calories; D72.829 Elevated white blood cell count, unspecified; F12.90 Cannabis use, unspecified, uncomplicated; R80.9 Proteinuria, unspecified; E78.5 Hyperlipidemia, unspecified; Z87.898 Personal history of other specified conditions; Z82.5 Family history of asthma and other chronic lower respiratory diseases; Z82.49 Family history of ischemic heart disease and other diseases of the circulatory system; Z90.49 Acquired absence of other specified parts of digestive tract; I25.2 Old myocardial infarction; Z68.37 Body mass index [BMI] 37.0-37.9, adult
CPT/HCPCS: 36415; 36600; 71010; 76770; 80048; 80053; 81001; 82150; 82550; 82553; 82803; 83690; 83735; 83880; 84100; 84484; 85025; 85379; 85610; 85730; 86704; 86706; 86708; 86709; 86803; 87081; 87340; 93005; 94640; 96365; 96366; 96375; 99285; C1750; J0360; J0456; J0690; J0696; J1644; J1940; J2001; J2250; J2270; J2704; J3010; J3475; J3490; J7030; J7060; J7613; J7644; Q0092

== ENCOUNTER 2017-04-26 12:34 | Inpatient (IN) | payer OTHER ==
[~2017-04-26] VITALS: Ht 162.6 cm; Wt 99.8 kg
[~2017-04-26 12:34] MED LIST changes: +CEPH250C16 PO; -POTA20TA16 PO; +POTA20TE15 PO
[2017-04-26 12:43] VITALS: BP 142/102
--- NOTE | 2017-04-26 12:48 | NUR ---
PT TRIAGED, AMBULATED TO ER LOBBY WAITING FOR ER BED. ERMD AWARE OF PATIENT STATUS.
--- NOTE | 2017-04-26 13:51 | NUR ---
PATIENT AMBULATED TO ER BED 3
--- NOTE | 2017-04-26 14:10 | NUR ---
36M BIB SELF C/O DISPLACED CVC PORT TO RT UPPER CHEST X YESTERDAY. PT STATES " I WAS JUST WALKING AND IT CAME OUT, SO I PUT IT BACK IN. I WENT TO DIALYSIS, BUT THEY SAID THEY COULDN'T CHANGE IT"; NO BLEEDING OR DRAINAGE NOTED FROM SITE AT THIS TIME; PT AA&OX4, PERRLA, BL LUNG SOUNDS CLEAR, RR EVEN/UNLABORED, STATES NO N/V/D AT THIS TIME; STEADY GAIT; PT RESTINGING IN BED WITH HOB ELEVATED AND IN LOWEST POSITION; POSITIONED FOR COMFORT; ER MADE AWARE OF STATUS. WILL CONTINUE TO MONITOR. Addendum: 04/26/17 at 1544 by [email or web address] PT DID NOT HAD HD YESTERDAY. Addendum: 04/26/17 at 1725 by [email or web address] PT STATED NEW HD SITE [facility]FA WILL USE IT NECT MONTH.
--- NOTE | 2017-04-26 14:21 | NUR ---
XRAY AT BEDSIDE.
[2017-04-26 15:15] LABS: BASOPHILS # (AUTO) 0.1 K/uL (0.00-0.22); BASOPHILS % (AUTO) 0.8 % (0.0-2.0); EOSINOPHILS # (AUTO) 0.4 K/uL (0-0.4); EOSINOPHILS % (AUTO) 5.5 % (0.0-4.0); HEMATOCRIT 36.6 % (36-52); HEMOGLOBIN 11.8 g/dL (12.0-18.0); LYMPHOCYTES # (AUTO) 1.4 K/uL (2.0-11.5); LYMPHOCYTES % (AUTO) 18.6 % (20.5-51.1); MEAN CORPUSCULAR HEMOGLOBIN 28 pg (27-31); MEAN CORPUSCULAR HGB CONC 32 g/dL (33-37); MEAN CORPUSCULAR VOLUME 88 fL (80-94); MONOCYTES # (AUTO) 1.1 K/uL (0.8-1.0); MONOCYTES % (AUTO) 14.6 % (1.7-9.3); NEUTROPHILS # (AUTO) 4.7 K/uL (1.8-7.7); NEUTROPHILS % (AUTO) 60.5 % (42.2-75.2); PLATELET COUNT (AUTO) 131 K/uL (140-450); RED BLOOD CELL COUNT(AUTO) 4.18 MIL/uL (4.20-6.10); RED CELL DISTRIBUTION WIDTH 13.7 % (11.6-13.7); WHITE BLOOD COUNT (AUTO) 7.7 K/uL (4.8-10.8)
--- NOTE | 2017-04-26 15:40 | NUR ---
TRANSFERED FROM BED 3 TO OF2 Addendum: 04/26/17 at 1543 by [email or web address] PT ESR[facility] HAS HD X 2 TIMES A WEEK ON FRIDAY & FRIDAY.
[2017-04-26 15:46] LABS: ALBUMIN 3.3 g/dL (3.4-5.0); ANION GAP 16.2 (8-16); CARBON DIOXIDE 21.8 mmol/L (21-32); TOTAL BILIRUBIN 0.4 mg/dL (0.0-1.0)
[2017-04-26] MEDS ORDERED: ONDANSETRON 4 MG/2 ML VIAL IVP PRN (16:35)
[2017-04-26] MEDS ORDERED: HYDROcodone/APAP 5/325 MG 1 TAB TAB PO PRN ×2 (16:35)
[2017-04-26] MEDS ORDERED: LORazepam 2 MG/ML VIAL IVP PRN (16:35)
[2017-04-26 17:45] VITALS: BP 165/109
--- NOTE | 2017-04-26 17:45 | NUR ---
RECEIVED PT FROM ER. AWAKE.ALERT ORIENTEDX4. NO SOB NOTED. DENIES ANY PAIN OR DISCOMFORT AT THIS TIME. PT AMBULATORY. SKIN INTACT. SAFETY PRECAUTION IN PLACE. CALL LIGHT WITHIN REACH.
--- NOTE | 2017-04-26 17:48 | NUR ---
Patient will be admitted to care of DR COOPER. Admited to . Will go to room 114. Belongings list completed. Report to KENYON LAFLEUR.
--- NOTE | 2017-04-26 18:10 | NUR ---
Yonas wing in EDM - 04/26/17 at 1811 by [facility] Patient will be admitted to care of DR COOPER. Admited to . Will go to room 114. Belongings list completed. Report to .
--- NOTE | 2017-04-26 18:46 | NUR ---
PT KEPT CLEAN, DRY AND COMFORTABLE. NEEDS ATTENDED. WILL ENDORSE TO NEXT SHIFT. PT ON STABLE CONDITION. NO SOB NOTED. DENIES ANY PAIN OR DISCOMFORT AT THIS TIME. PROVIDED WITH DINNER TRAY. TOLERATED WELL. FOR CONTINUITY OF CARE.
--- NOTE | 2017-04-26 19:05 | NUR ---
RECEIVED REPORT FROM DAY SHIFT NURSE. AAOX4. NO C/O PAIN OR DISCOMFORT. IV TO LEFT HAND #22G, SALINE LOCK. PORTACATH TO RIGHT UPPER CHEST WITH CLEAN AND DRY DRESSING. RIGHT HAND FISTULA TO RIGHT FOREARM NOTED. ORIENTED PT TO ROOM. CALL LIGHT WITHIN REACH. WILL CONTNIUE TO MONITOR.
[2017-04-26 20:00] VITALS: BP 123/82
--- NOTE | 2017-04-26 20:15 | NUR ---
DR. COOPER CAME IN TO TO SEE PT. NO NEW ORDER.
[2017-04-26] MEDS ORDERED: LIDOCAINE 1% 50 ML ONE (20:35)
--- NOTE | 2017-04-26 20:35 | NUR ---
DR. HIGGINS CAME IN TO SEE PT. DR. HIGGINS SUTURED THE RIGHT UPPER CHEST PERM A CATH TO THE SKIN. DRESSING APPLIED. PT TOLERATED PROCEDURE WELL.
--- NOTE | 2017-04-26 23:40 | NUR ---
SPOKE WITH DIALYSIS NURSE NURA MONTES ON THE PHONE, INFORMED HER THAT PT HAS ORDER FOR DIALYSIS TOMORROW 04/27/17.
[2017-04-27] VITALS: BP 150/89
--- NOTE | 2017-04-27 02:30 | NUR ---
PT SLEEPING. NO S/S OF DISTRESS NOTED. CALL LIGHT WITHIN REACH.
[2017-04-27 04:00] VITALS: BP 156/86
--- NOTE | 2017-04-27 05:05 | NUR ---
PT SLEEPING BUT WAKES EASILY. NO S/S OF PAIN OR DISCOMFORT. CALL LIGHT WITHIN REACH.
--- NOTE | 2017-04-27 06:43 | NUR ---
PATIENT HAS BEEN SCREENED AND CATEGORIZED MODERATE NUTRITION RISK. PATIENT WILL BE SEEN WITHIN 3-5 DAYS OF ADMISSION. 04/29/17-05/01/17 RENNY SMITH MS, RDN
--- NOTE | 2017-04-27 07:20 | NUR ---
ENDORSED PT TO DAY SHIFT NURSE. PT IN STABLE CONDITION.
[2017-04-27 07:41] LABS: BASOPHILS % (AUTO) 0.4 % (0.0-2.0); EOSINOPHILS # (AUTO) 0.4 K/uL (0-0.4); EOSINOPHILS % (AUTO) 4.2 % (0.0-4.0); HEMATOCRIT 35.1 % (36-52); HEMOGLOBIN 11.6 g/dL (12.0-18.0); LYMPHOCYTES % (AUTO) 10.8 % (20.5-51.1); MEAN CORPUSCULAR HEMOGLOBIN 29 pg (27-31); MEAN CORPUSCULAR HGB CONC 33 g/dL (33-37); MEAN CORPUSCULAR VOLUME 86 fL (80-94); MONOCYTES # (AUTO) 1.1 K/uL (0.8-1.0); MONOCYTES % (AUTO) 11.3 % (1.7-9.3); NEUTROPHILS # (AUTO) 7.1 K/uL (1.8-7.7); NEUTROPHILS % (AUTO) 73.3 % (42.2-75.2); PLATELET COUNT (AUTO) 132 K/uL (140-450); RED BLOOD CELL COUNT(AUTO) 4.07 MIL/uL (4.20-6.10); RED CELL DISTRIBUTION WIDTH 13.5 % (11.6-13.7); WHITE BLOOD COUNT (AUTO) 9.6 K/uL (4.8-10.8)
[2017-04-27 07:51] VITALS: BP 146/89
[2017-04-27 07:59] LABS: CARBON DIOXIDE 19.5 mmol/L (21-32); POTASSIUM 5.5 mmol/L (3.5-5.1)
[2017-04-27 08:03] LABS: CREATININE 5.6 mg/dL (0.7-1.3)
--- NOTE | 2017-04-27 08:04 | NUR ---
RECEIVED REPORT FROM KENYON GARCIA AT BEDSIDE. PATIENT ALERT AWAKE ORIENTED X4 NOT IN ANY DISTRESS, DENIES PAIN. INITIAL ASSESSMENT INITIATED. WITH RIGHT HAND SHUNT WITH GOOD BRUIT AND THRILL NOTED. CALL LIGHT WITHIN REACH, NEEDS ATTENDED. WILL CONTINUE TO MONITOR.
--- NOTE | 2017-04-27 08:30 | NUR ---
DIALYSIS STARTED, NO C/O PAIN WILL CONTINUE TO MONITOR.
[2017-04-27] MEDS ORDERED: CEPH250C16 PO (11:41)
--- NOTE | 2017-04-27 11:48 | NUR ---
SEEN BY DR. COOPER AND DISCUSSED PLAN OF CARE, FOR D/C TODAY IF OK WITH [facility]PHRO. WILL FOLLOW UP.
[2017-04-27 11:57] VITALS: BP 140/78
[2017-04-27] MEDS ORDERED: CEPHALEXIN 250 MG CAP PO SCH (12:00)
--- NOTE | 2017-04-27 12:00 | NUR ---
DIALYSIS DONE WITH I LITER OUTPUT, DENIES PAIN RESTING COMFORTABLY.
[2017-04-27] MEDS ORDERED: CARVEDILOL 12.5 MG TAB PO SCH (13:00)
[2017-04-27] MEDS ORDERED: VANCOMYCIN PER PHARMACY MC PRN (15:40)
--- NOTE | 2017-04-27 15:45 | NUR ---
PAGED DR. HATFIELD IF PATIENT IS STABLE TO GO HOME, PER DR. HATFIELD HE WILL STAY DUE TO CATHETER NEEDS TO BE REMOVED AND WILL REPLACED ANOTHER CATHETER BY DR. HIGGINS. NOTIFIED DR. COOPER.
--- NOTE | 2017-04-27 16:00 | NUR ---
SPOKE TO THE PATIENT ABOUT THE PLAN AND PATIENT DECIDED TO GO AMA, HE SAID HE NEEDS TO GO BACK TO WORK [employer]. I EXPLAINED TO THE PATIENT TO WAIT FOR DR. HATFIELD AND DISCUSSED THE RISK AND CONSEQUENCES. PATIENT STILL WANTS TO SIGN AMA.
[2017-04-27 16:09] VITALS: BP 119/92
--- NOTE | 2017-04-27 16:18 | NUR ---
SPOKE TO DR. HATFIELD AND MADE AWARE REGARDING PATIENT LEAVING AMA AND DR. COOPER NOTIFIED ALSO.
[2017-04-27] MEDS ORDERED: VANCOMYCIN 1GM/DEXT 5% PREMIX 200 ML IV SCH (16:30)
--- NOTE | 2017-04-27 16:35 | NUR ---
PATIENT LEFT AMA, IV HEPLOCK AND TELEMETRY BOX REMOVED.
[2017-04-27] MEDS ORDERED: SIMVASTATIN 20 MG TAB PO SCH (21:00)
[2017-04-28] MEDS ORDERED: ISOSORBIDE MONONITRATE 30 MG TABER PO SCH (09:00)
--- NOTE | 2017-04-30 08:43 | NUR ---
RETRO REVIEW ER REPORT, OPERATIVE REPORT, AND CONSULTS FAXED TO [facility] [phone] [place] [phone] NO H&P OR DISCHARGE SUMMARY AVAILABLE.
== END 2017-04-27 16:45 | disposition left against medical advice (07) | DRG 466 ==
LOC: MED 12:34 → MTU 16:47
PROVIDERS: ADMIT Hospitalist; ATTEND Hospitalist
PROC: 02WYX3Z Revision of Infusion Device in Great Vessel, External Approach (ICD-10-PCS; principal; 2017-04-26)
PROC: 5A1D70Z Performance of Urinary Filtration, Intermittent, Less than 6 Hours Per Day (ICD-10-PCS; 2017-04-27)
DX: T82.42XA Displacement of vascular dialysis catheter, initial encounter (principal); N18.6 End stage renal disease; I13.2 Hypertensive heart and chronic kidney disease with heart failure and with stage 5 chronic kidney disease, or end stage renal disease; I50.9 Heart failure, unspecified; F17.210 Nicotine dependence, cigarettes, uncomplicated; Y83.8 Other surgical procedures as the cause of abnormal reaction of the patient, or of later complication, without mention of misadventure at the time of the procedure; E78.5 Hyperlipidemia, unspecified; Z82.49 Family history of ischemic heart disease and other diseases of the circulatory system; Z99.2 Dependence on renal dialysis
CPT/HCPCS: 36415; 71010; 80048; 80053; 83605; 83880; 84484; 85025; 87040; 87070; 87081; 90935; 99285; J1644; J2001; J3370; J7030; Q0092